=== PATIENT | female | born 2000 | race Caucasian/White ===

== ENCOUNTER 2021-02-26 19:37 | Outpatient (CLI) | payer OTHER | END 2021-02-27 10:00 | disposition home or self-care (01) | LOC: GENOP 19:37 | DX: O99.891 Other specified diseases and conditions complicating pregnancy (principal); R10.9 Unspecified abdominal pain; M54.9 Dorsalgia, unspecified; O36.8120 Decreased fetal movements, second trimester, not applicable or unspecified; Z3A.26 26 weeks gestation of pregnancy | CPT/HCPCS: 81001; 82731; 96360; 96361; 96372; 96374; J0595; J3105; J7120 ==

== ENCOUNTER 2022-04-30 23:11 | Emergency (ER) | payer OTHER | END 2022-04-30 23:55 | disposition left against medical advice (07) | LOC: ER1 23:11 | DX: Z53.21 Procedure and treatment not carried out due to patient leaving prior to being seen by health care provider (principal) | CPT/HCPCS: 81001; 84703 ==

== ENCOUNTER → 2022-06-11 | Outpatient (CLI) | payer OTHER | LOC: KOH-I 14:45 | DX: R22.2 Localized swelling, mass and lump, trunk (principal) | CPT/HCPCS: 76705 ==